=== PATIENT | female | born 1960 | race Caucasian/White ===

== ENCOUNTER → 2017-06-16 | Day surgery (SDC) | payer OTHER ==
[~2017-06-16] MED LIST: AZO STANDARD95 MG PO; BELLADONNA/OPIUM 60 MG SUPP PR ONE; DEXAMETHASONE SOD PHOS INJ 4 MG/ML VIAL ONE; FENTANYL CITRATE/PF 100MCG/2 ML INJ ONE; GENTAMICIN 80MG/NS 100 ML 200 ML IV ONE; IOPAMIDOL 610MG/1ML 300 MG/ML VIAL IV ONE; LIDOCAINE HCL 2% LOCAL INJ 5 ML SDV VIAL INJ ONE; MIDAZOLAM HCL 2 MG/2 ML VIAL ONE; ONDANSETRON HCL INJ 2 MG/ML VIAL ONE; OXYBUTYNIN CHLOR5 MG PO; PROPOFOL IV EMULSION 10 MG/ML 20 ML VIAL ONE; SEVOFLURANE INHAL SOLN 250 ML PEN BTL ONE
[2017-06-16 07:42] LABS: BASOPHILS % 0.5 % (0.0-1.0); EOSINOPHILS # (AUTO) 0.2 (0.0-0.4); EOSINOPHILS % 3.7 % (0.0-6.0); HEMATOCRIT 37.9 % (34.2-44.1); HEMOGLOBIN 12.4 g/dL (12.0-16.0); LYMPHOCYTES # (AUTO) 1.6 (1.0-3.2); LYMPHOCYTES % 27.4 % (18.0-39.1); MEAN CORPUSCULAR HEMOGLOBIN 29.4 pg (28-32); MEAN CORPUSCULAR HGB CONC 32.7 g/dL (31-35); MEAN CORPUSCULAR VOLUME 89.8 fL (81-99); MONOCYTES # (AUTO) 0.5 (0.2-0.8); MONOCYTES % 8.3 % (4.4-11.3); NEUTROPHILS # (AUTO) 3.4 (2.1-6.9); NEUTROPHILS % 59.6 % (38.7-80.0); PLATELET COUNT 246 x10e3/uL (140-360); RED BLOOD COUNT 4.22 x10e6/uL (3.6-5.1); RED CELL DISTRIBUTION WIDTH 13.4 % (11.7-14.4)
--- NOTE | 2017-06-16 07:45 | Diagnostic Imaging Report ---
PROCEDURE:X-RAY ABDOMEN - KUB COMPARISON:None. INDICATIONS:PREOPERATIVE XRAY FOR KIDNEY STONE SURGERY FINDINGS: Proximal loop of left internal ureteral stent projects over the expected region of the ureteropelvic junction. Distal locking loop projects over the expected region of the urinary bladder to the left of midline. No suspicious calcifications project over the renal shadows, left ureteral stent, or the expected right ureteral course. Bowel gas pattern shows no dilated, air-filled loops of bowel. Cholecystectomy clips project over the right upper quadrant. Bowel gas pattern is nonobstructive. CONCLUSION: left internal ureteral stent in position as described. No plain film evidence of urolithiasis. Dictated by: Tu Beaver M.D. on 06/16/2017 at 7:53 Electronically approved by: Tu Beaver M.D. on 06/16/2017 at 7:53
[2017-06-16 08:02] LABS: ANION GAP 14.1 mmol/L (8-16); BLOOD UREA NITROGEN 11 mg/dL (7-26); BUN/CREATININE RATIO 16 (6-25); CALCIUM 9.2 mg/dL (8.4-10.2); CARBON DIOXIDE 24 mmol/L (22-29); CHLORIDE 106 mmol/L (98-107); EST GLOMERULAR FILTRATION RATE > 60 ML/MIN (60-); GLUCOSE 115 mg/dL (74-118); POTASSIUM 4.1 mmol/L (3.5-5.1); SODIUM 140 mmol/L (136-145)
--- NOTE | 2017-08-10 02:25 | Operative Report ---
DATE OF PROCEDURE: June 16, 2017 PREOPERATIVE DIAGNOSES: 1. Horseshoe kidney. 2. Left nephrolithiasis. 3. Left indwelling ureteral stent. POSTOPERATIVE DIAGNOSES: 1. Horseshoe kidney. 2. Left nephrolithiasis. 3. Left indwelling ureteral stent. 4. Grade 2 cystocele. 5. Grade 2 rectocele. 6. Atrophic (senile) vaginitis. OPERATIONS PERFORMED: 1. Cystourethroscopy with complicated removal of left indwelling ureteral stent (separate procedure performed for the diagnosis of the stent done with separate scope). 2. Left semirigid and flexible ureteropyeloscopy (separate procedure performed to evaluate for any residual nephrolithiasis). 3. Interpretation of retrograde ureteropyelography. 4. Supervision of fluoroscopy, no radiologist present. 5. Radiological services for supervision and interpretation of ureteroscopy. 6. Pelvic examination under anesthesia. ANESTHESIA: General. COMPLICATIONS: None. CLINICAL SUMMARY: Pat Orozco is a 56-year-old woman who underwent ureteral stenting for a stone. The patient has known horseshoe kidney. She is brought to the operating room today to evaluate and manage any residual stone. She is aware of the risks of bleeding, infection, injury to adjacent structures, need for additional procedures, and elected to proceed. OPERATIVE PROCEDURE IN DETAIL: Informed consent was verified. Pat Orozco was properly identified, taken to the operating room and placed on the cystoscopy table in supine position. Anesthesia was uneventfully begun. The patient was then carefully and gently repositioned in dorsal lithotomy position with all pressure points well padded. Her genitalia were prepared and draped in usual sterile fashion. The 22.5-Romansh cystoscope sheath with the obturator in place was atraumatically inserted into the patient's urethra and the bladder was drained. Panendoscopy of the urinary bladder revealed a stent emerging from the left ureteral orifice. There were no suspicious lesions. A guidewire was then placed alongside the stent and guided to level of the patient's kidney. The stent was then grasped, completely removed, and discarded. Semirigid ureteroscope was then placed alongside the guidewire into the distal ureter. It did not exhibit any stones and no evidence of strictures and no evidence of suspicious lesions. Flexible ureteroscope was then brought up over the guidewire and guided at the level of the patient's kidney. Careful panendoscopy of the intrarenal collecting system revealed some very fine sand and some calcifications on the mucosa, José Miguel's plaques were identified, but there was no significantly sized stone that could be obstructing or causing the patient problem at this point in time. We did perform careful panendoscopy of the intrarenal collecting system with fluoroscopic guidance 3 times and could not visualize any residual stone. We carefully re-examined the ureter as we exited and it did not exhibit any stones. The patient's bladder was then drained. Cystoscope was withdrawn. Pelvic examination under anesthesia revealed a grade 2 cystocele, grade 2 rectocele with atrophic vaginitis. No abnormal palpable pelvic masses could be appreciated. The patient was then uneventfully reversed from anesthesia and taken to recovery room in stable condition. Explicit postoperative instructions were given. Will follow the patient up in the office. Job#: [id number] cc:JULI CAMACHO MD
== END | disposition home or self-care (01) ==
LOC: OR 05:58
PROVIDERS: ATTEND Urology
DX: N20.0 Calculus of kidney (principal); Q63.1 Lobulated, fused and horseshoe kidney; Z46.6 Encounter for fitting and adjustment of urinary device; N81.10 Cystocele, unspecified; N81.6 Rectocele; N95.2 Postmenopausal atrophic vaginitis; N28.89 Other specified disorders of kidney and ureter; Z01.810 Encounter for preprocedural cardiovascular examination; Z87.891 Personal history of nicotine dependence
CPT/HCPCS: 36415; 52351; 74000; 74420; 80048; 83970; 84550; 85025; 93005; J1100; J1580; J2001; J2250; J2405; Q9967; 74018

== ENCOUNTER 2017-10-07 19:38 | Emergency (ER) | payer OTHER ==
[~2017-10-07] VITALS: Ht 180.3 cm; Wt 117.0 kg
[~2017-10-07 19:38] MED LIST changes: -BELLADONNA/OPIUM 60 MG SUPP PR ONE; -DEXAMETHASONE SOD PHOS INJ 4 MG/ML VIAL ONE; -FENTANYL CITRATE/PF 100MCG/2 ML INJ ONE; -GENTAMICIN 80MG/NS 100 ML 200 ML IV ONE; -IOPAMIDOL 610MG/1ML 300 MG/ML VIAL IV ONE; -LIDOCAINE HCL 2% LOCAL INJ 5 ML SDV VIAL INJ ONE; -MIDAZOLAM HCL 2 MG/2 ML VIAL ONE; -ONDANSETRON HCL INJ 2 MG/ML VIAL ONE; -PROPOFOL IV EMULSION 10 MG/ML 20 ML VIAL ONE; -SEVOFLURANE INHAL SOLN 250 ML PEN BTL ONE
--- OUTSIDE RECORDS SUMMARY | 2017-10-07 19:40 | XMS REPORT ---
Author Author [facility] Address Unknown Phone Unavailable Care Team Providers Care [employer] Mdm Architect Name Role Phone BRADFORD JAY Unavailable Unavailable Problems This patient has no known problems. Allergies, Adverse Reactions, Alerts This patient has no known allergies or adverse reactions. Medications This patient has no known medications. Results Test Description Test Time Test Comments Text Results Atomic Results Result Comments ABDOMEN-1VIEW (KUB) [place] [address] Patient Name: YANY LOW MR #: [id number] : 1960 Age/Sex: 56/F Req # : [id number] Adm Physician: Ordered by: BRADFORD JAY MD Report #: [id number] Location: OR Room/Bed: Procedure: [id number] DX/ABDOMEN-1VIEW (KUB) Exam Date: 06/16/17 Exam Time : 0735 REPORT STATUS: Signed PROCEDURE: X-RAY ABDOMEN - KUB COMPARISON: None. INDICATIONS: PREOPERATIVE XRAY FOR KIDNEY STONE SURGERY FINDINGS: Proximal loop of left internal ureteral stent projects over the expected region of the ureteropelvic junction. Distal locking loop projects over the expected region of the urinary bladder to the left of midline. No suspicious calcifications project over the renal shadows , left ureteral stent, or the expected right ureteral course. Bowel gas pattern shows no dilated, air-filled loops of bowel. Cholecystectomy clips project over the right upper quadrant. Bowel gas pattern is nonobstructive. CONCLUSION: left internal ureteral stent in position as described. No plain film evidence of urolithiasis. Dictated by : Raheel Hwang M.D. on 06/16/2017 at 7:53 Electronically approved by: Raheel Hwang M.D. on 06/16/2017 at 7:53 Dictated By: RAHEEL HWANG MD [id number] Transcribed By : MILLIE on 06/16/17 0753 COPY TO: BRADFORD JAY MD
[2017-10-07] MEDS ORDERED: SODIUM CHLORIDE 0.9% 1000ML 1,000 ML IV STA (19:53)
[2017-10-07 20:12] LABS: BASOPHILS % 0.4 % (0.0-1.0); EOSINOPHILS # (AUTO) 0.2 (0.0-0.4); EOSINOPHILS % 1.8 % (0.0-6.0); HEMATOCRIT 37.6 % (34.2-44.1); HEMOGLOBIN 12.3 g/dL (12.0-16.0); LYMPHOCYTES # (AUTO) 1.8 (1.0-3.2); LYMPHOCYTES % 21.8 % (18.0-39.1); MEAN CORPUSCULAR HEMOGLOBIN 28.8 pg (28-32); MEAN CORPUSCULAR HGB CONC 32.7 g/dL (31-35); MEAN CORPUSCULAR VOLUME 88.1 fL (81-99); MONOCYTES # (AUTO) 0.6 (0.2-0.8); MONOCYTES % 6.7 % (4.4-11.3); NEUTROPHILS # (AUTO) 5.7 (2.1-6.9); NEUTROPHILS % 68.9 % (38.7-80.0); PLATELET COUNT 293 x10e3/uL (140-360); RED BLOOD COUNT 4.27 x10e6/uL (3.6-5.1); RED CELL DISTRIBUTION WIDTH 13.2 % (11.7-14.4)
[2017-10-07 20:17] LABS: CLARITY,URINE HAZY (CLEAR); COLOR,URINE ORANGE (YELLOW)
[2017-10-07 20:18] LABS: KETONES,URINE TRACE (NEGATIVE); LEUKOCYTE ESTERASE ,URINE NEGATIVE (NEGATIVE); NITRITE,URINE POSITIVE (NEGATIVE); PROTEIN,URINE DIPSTICK 2+ (NEGATIVE)
[2017-10-07 20:19] LABS: BILIRUBIN,URINE NEGATIVE (NEGATIVE); URINE UROBILINOGEN 0.2 mg/dL (0.2 - 1)
[2017-10-07 20:32] LABS: ALANINE AMINOTRANSFERASE 38 IU/L (0-55); ALBUMIN 3.6 g/dL (3.5-5.0); ALBUMIN/GLOBULIN RATIO 1.1 (0.8-2.0); ALKALINE PHOSPHATASE 79 IU/L (40-150); ANION GAP 12.6 mmol/L (8-16); BLOOD UREA NITROGEN 13 mg/dL (7-26); BUN/CREATININE RATIO 18 (6-25); CALCIUM 9.4 mg/dL (8.4-10.2); CARBON DIOXIDE 25 mmol/L (22-29); CHLORIDE 103 mmol/L (98-107); CREATININE, SERUM 0.73 mg/dL (0.57-1.11); EST GLOMERULAR FILTRATION RATE > 60 ML/MIN (60-); GLUCOSE 146 mg/dL (74-118); MAGNESIUM 1.8 MG/DL (1.3-2.1); POTASSIUM 3.6 mmol/L (3.5-5.1); SODIUM 137 mmol/L (136-145)
[2017-10-07 20:38] LABS: BACTERIA,URINE FEW /HPF; EPITHELIAL CELLS,URINE FEW /LPF; RBC,URINE >50 /HPF (0-5)
[2017-10-07] MEDS ORDERED: CEFTRIAXONE SOD 1 GM VIAL IV SCH (21:00)
[2017-10-07] MEDS ORDERED: MORPHINE SULFATE 4 MG/ML SYR IV STA (21:01)
[2017-10-07] MEDS ORDERED: MORPHINE SULFATE 2 MG/ML SYR ONE (21:04)
[2017-10-07] MEDS ORDERED: ONDANSETRON HCL 4 MG ORAL DISINTEGRATING TAB PO PRN (21:15)
--- NOTE | 2017-10-07 21:34 | Diagnostic Imaging Report ---
EXAM: CT ABDOMEN/PELVIS WO DATE: 10/07/2017 7:53 PM INDICATION: Stent evaluation, abdominal pain on the right COMPARISON: None TECHNIQUE: The abdomen and pelvis were scanned using a multidetector helical scanner. Coronal and sagittal reformations were obtained. Routine protocol performed. IV Contrast: 0 ml Isovue 300/370 FINDINGS: LOWER THORAX: No consolidations LIVER/BILIARY: Diffuse hepatic steatosis. GALLBLADDER: Cholecystectomy. SPLEEN: Unremarkable PANCREAS: Unremarkable ADRENALS: No nodules KIDNEYS: Horseshoe kidney. There is a 6.5 cm left renal cyst/benign appearing cystic lesion. A right double-J ureteral stent is in place without stones or hydronephrosis; focal mild inferior caliectasis. There is some right periureteral stranding. GI TRACT: No wall thickening or evidence of obstruction. Normal appendix. VESSELS: Unremarkable PERITONEUM/RETROPERITONEUM: No free air or fluid LYMPH NODES: No lymphadenopathy REPRODUCTIVE ORGANS/BLADDER: Status post hysterectomy. 2.7 cm right ovarian cystic structure and 1.6 cm left ovarian cystic structure. SOFT TISSUES: Unremarkable BONES: No suspicious bone lesions. IMPRESSION: 1. Horseshoe kidney. Right double-J ureteral stent without hydronephrosis. Right periureteral stranding which may be inflammatory or infectious; correlate with urinalysis. 2. Bilateral ovarian cystic lesions (largest 2.7 cm). Recommend nonemergent follow-up pelvic ultrasound. Signed by: Dr Dorota Pierre MD on 10/07/2017 9:31 PM
[2017-10-07] MEDS ORDERED: KETOROLAC TROMETHAMINE 30 MG/ML VIAL IV STA (22:48)
[2017-10-07] MEDS ORDERED: SODIUM CHLORIDE 0.9% 250ML 250 ML ONE (22:49)
[2017-10-07] MEDS ORDERED: SODIUM CHLORIDE 0.9% 500ML 500 ML IV ONE (23:00)
[2017-10-07 23:37] VITALS: BP 134/76
== END 2017-10-07 23:47 | disposition home or self-care (01) ==
LOC: ER 19:38
DX: R10.31 Right lower quadrant pain (principal); N30.91 Cystitis, unspecified with hematuria; N39.0 Urinary tract infection, site not specified
CPT/HCPCS: 36415; 74176; 80053; 81001; 83605; 83735; 85025; 87040; 87086; 99284; J0696; J1885; J2270; J7030; J7050

== ENCOUNTER → 2017-12-06 | Outpatient (CLI) | payer OTHER ==
[~2017-12-06] MED LIST changes: +FUROSEMIDE INJ 10 MG/ML 4 ML VIAL ONE
--- NOTE | 2017-12-06 22:41 | Diagnostic Imaging Report ---
Renal Scan with Lasix Washout Clinical information: 57 F with known horseshoe kidney; complains of intermittent left flank pain Technique: Following intravenous administration of 11 mCi of Tc-99m MAG3, dynamic images of the kidneys in the posterior projection were obtained through 40 minutes. Lasix 40 mg was administered intravenously at 12 minutes post injection of the tracer. Report: The kidney have a horseshoe configuration with distinct right and left collecting systems. Left kidney: Perfusion of the left kidney moiety is prompt. The kidney has a non-reniform shape with irregular contours. Extraction of tracer from the blood pool is decreased. Clearance of tracer from the renal parenchyma is prompt. The pelvicalyceal system is not dilated. Some increase in pooling of tracer within the pelvicalyceal system is seen. Some drainage of tracer from the pelvicalyceal system is seen prior to administration of Lasix. Washout of tracer from the pelvicalyceal system following administration of Lasix is rapid with a T-1/2 of 6 minutes (normal less than 15 minutes). No significant stasis of tracer is seen within the left ureter. Right kidney: Perfusion to the right kidney moiety is prompt. The right kidney has a non-reniform shape with irregular contours. Extraction of tracer by the renal parenchyma is decreased. Clearance of tracer from the renal parenchyma is prompt. The pelvicalyceal system is not dilated. Some increase in pooling of tracer within the pelvicalyceal system is seen. Some drainage of tracer from the pelvicalyceal system is seen prior to administration of Lasix. Washout of tracer from the pelvicalyceal system following administration of Lasix is rapid with a T-1/2 of 4 minutes (normal less than 15 minutes). No significant stasis of tracer is seen within the right ureter. Differential renal function: The left kidney moiety contributes 53% of total renal function and the right kidney moiety contributes 47% (normal 43-57%). Impression: 1. The function of the left kidney is generally normal. No hydronephrosis is present. No physiologically significant obstruction of the renal collecting system is present. 2. The function of the right kidney is generally normal. No hydronephrosis is present. No physiologically significant obstruction of the renal collecting system is present. 3. The differential renal function is preserved. Signed by: Dr. Marj Vang M.D. on 12/06/2017 10:37 PM
== END ==
LOC: NM 09:13
PROVIDERS: ATTEND Urology
DX: N13.30 Unspecified hydronephrosis (principal)
CPT/HCPCS: 78708; A9562; J1940

== ENCOUNTER → 2018-11-01 | Outpatient (CLI) | payer OTHER ==
[~2018-11-01] MED LIST changes: -FUROSEMIDE INJ 10 MG/ML 4 ML VIAL ONE
--- NOTE | 2018-11-01 16:15 | Diagnostic Imaging Report ---
Exam: KUB - 2 views Clinical History: Renal calculus. Comparison: KUB 06/16/[address] abdomen/pelvis without contrast 10/07/2017. Findings: Interval removal of right-sided internal ureteral stent. No evidence of calcification overlying the expected location of the horseshoe kidney or the ureters. Nonobstructive bowel gas pattern. No acute osseous abnormality. Status post cholecystectomy. Impression: No radiographic evidence of nephrolithiasis. Signed by: Dr. Suleman Smiley MD on 11/01/2018 4:11 PM
== END ==
LOC: RAD 15:25
PROVIDERS: ATTEND Urology
DX: N20.0 Calculus of kidney (principal)
CPT/HCPCS: 74018

== ENCOUNTER → 2020-08-27 | Outpatient (CLI) | payer BC | LOC: CT 15:31 | PROVIDERS: ATTEND Urology | DX: N23 Unspecified renal colic (principal); Z87.442 Personal history of urinary calculi | CPT/HCPCS: 74176 ==

== ENCOUNTER 2021-05-03 13:09 | Emergency (ER) | payer BC, OTHER ==
[~2021-05-03] VITALS: Ht 180.3 cm; Wt 117.0 kg
[2021-05-03] MEDS ORDERED: KETOROLAC TROMETHAMINE 30 MG/ML VIAL IV STA (13:44)
[2021-05-03] MEDS ORDERED: ORPHENADRINE CITRATE 30 MG/ML VIAL IM STA (13:44)
[2021-05-03] MEDS ORDERED: DEXAMETHASONE SOD PHOS 10 MG/1 ML VIAL IV ONE (13:45)
[2021-05-03] MEDS ORDERED: FENTANYL CITRATE/PF 100MCG/2 ML INJ IV ONE ×2 (13:45→16:00)
[2021-05-03] MEDS ORDERED: PREDNISONE50 MG PO (15:21)
[2021-05-03] MEDS ORDERED: CYCLOBENZAPRINE5 MG PO (15:24)
[2021-05-03] MEDS ORDERED: IBUPROFEN800 MG PO (15:24)
[2021-05-03 16:20] VITALS: BP 127/72
== END 2021-05-03 16:17 | disposition home or self-care (01) ==
LOC: ER 13:34
DX: M54.50 Low back pain, unspecified (principal); W01.0XXA Fall on same level from slipping, tripping and stumbling without subsequent striking against object, initial encounter; Y93.01 Activity, walking, marching and hiking; Y99.0 Civilian activity done for income or pay; I10 Essential (primary) hypertension; Q63.1 Lobulated, fused and horseshoe kidney; Z87.442 Personal history of urinary calculi; Z86.39 Personal history of other endocrine, nutritional and metabolic disease
CPT/HCPCS: 72110; 73502; 73562; 99284; J1100; J1885; J2360; J3010

== ENCOUNTER 2021-05-07 13:20 | Emergency (ER) | payer BC, OTHER ==
[~2021-05-07] VITALS: Ht 180.3 cm; Wt 117.0 kg
[~2021-05-07 13:20] MED LIST changes: +CYCLOBENZAPRINE5 MG PO; +IBUPROFEN800 MG PO; +PREDNISONE50 MG PO
[2021-05-07] MEDS ORDERED: ONDANSETRON HCL INJ 2MG/ML 2ML 2 MG/ML VIAL IV STA (13:37)
[2021-05-07] MEDS ORDERED: Morphine 4mg Syringe 4 MG/ML INJ IV STA (13:37)
[2021-05-07] MEDS ORDERED: SODIUM CHLORIDE 0.9% 1000ML 1,000 ML IV STA (13:37)
[2021-05-07 13:52] LABS: BASOPHILS % 0.5 % (0.0-1.0); EOSINOPHILS # (AUTO) 0.2 (0.0-0.4); EOSINOPHILS % 2.4 % (0.0-6.0); HEMATOCRIT 40.3 % (34.2-44.1); HEMOGLOBIN 12.9 g/dL (12.0-16.0); LYMPHOCYTES # (AUTO) 1.4 (1.0-3.2); LYMPHOCYTES % 17.1 % (18.0-39.1); MEAN CORPUSCULAR HEMOGLOBIN 29.2 pg (28-32); MEAN CORPUSCULAR VOLUME 91.2 fL (81-99); MONOCYTES # (AUTO) 0.5 (0.2-0.8); NEUTROPHILS # (AUTO) 5.9 (2.1-6.9); NEUTROPHILS % 73.4 % (38.7-80.0); PLATELET COUNT 247 x10e3/uL (140-360); RED BLOOD COUNT 4.42 x10e6/uL (3.6-5.1); RED CELL DISTRIBUTION WIDTH 13.3 % (11.7-14.4)
[2021-05-07 14:13] LABS: ALBUMIN 3.9 g/dL (3.5-5.0); ALBUMIN/GLOBULIN RATIO 1.3 (0.8-2.0); ANION GAP 14.4 mmol/L (8-16); CALCIUM 8.8 mg/dL (8.4-10.2); CREATININE, SERUM 0.64 mg/dL (0.57-1.11); POTASSIUM 3.4 mmol/L (3.5-5.1)
[2021-05-07] MEDS ORDERED: IOPAMIDOL 370 MG/ML 200 ML INFUS..BTL INJ ONE (14:29)
[2021-05-07] MEDS ORDERED: SODIUM CHLORIDE 0.9% 50ML 50 ML ONE (14:29)
[2021-05-07] MEDS ORDERED: POTASSIUM CHLORIDE 10MEQ EA PO ONE (15:45)
[2021-05-07] MEDS ORDERED: KETOROLAC TROMETHAMINE 30 MG/ML VIAL IV STA (15:53)
[2021-05-07 15:55] LABS: CLARITY,URINE CLOUDY (CLEAR); COLOR,URINE YELLOW (YELLOW); KETONES,URINE NEGATIVE (NEGATIVE); LEUKOCYTE ESTERASE ,URINE NEGATIVE (NEGATIVE); NITRITE,URINE NEGATIVE (NEGATIVE); PROTEIN,URINE DIPSTICK NEGATIVE (NEGATIVE); URINE UROBILINOGEN 0.2 mg/dL (0.2 - 1)
[2021-05-07 16:05] LABS: BACTERIA,URINE RARE /HPF; EPITHELIAL CELLS,URINE FEW /LPF
[2021-05-07] MEDS ORDERED: DICYCLOMINE HCL 20 MG/2 ML VIAL IM ONE (16:15)
[2021-05-07 16:33] VITALS: BP 143/66
== END 2021-05-07 16:40 | disposition home or self-care (01) ==
LOC: ER 13:45
DX: R10.30 Lower abdominal pain, unspecified (principal); N94.9 Unspecified condition associated with female genital organs and menstrual cycle; K76.0 Fatty (change of) liver, not elsewhere classified
CPT/HCPCS: 36415; 74177; 80053; 81001; 83690; 85025; 99284; J0500; J2270; J2405; J7030; Q9967

== ENCOUNTER 2024-05-24 13:30 | Day surgery (SDC) | payer BC ==
[2024-05-21 11:09] LABS: BASOPHILS % 0.7 % (0.0-1.0); EOSINOPHILS # (AUTO) 0.2 (0.0-0.4); EOSINOPHILS % 3.1 % (0.0-6.0); HEMATOCRIT 36.9 % (34.2-44.1); LYMPHOCYTES # (AUTO) 1.2 (1.0-3.2); LYMPHOCYTES % 18.7 % (18.0-39.1); MEAN CORPUSCULAR HEMOGLOBIN 29.8 pg (28-32); MEAN CORPUSCULAR HGB CONC 32.5 g/dL (31-35); MEAN CORPUSCULAR VOLUME 91.6 fL (81-99); MONOCYTES # (AUTO) 0.5 (0.2-0.8); MONOCYTES % 7.6 % (4.4-11.3); NEUTROPHILS # (AUTO) 4.3 (2.1-6.9); NEUTROPHILS % 69.6 % (38.7-80.0); PLATELET COUNT 201 x10e3/uL (140-360); RED BLOOD COUNT 4.03 x10e6/uL (3.6-5.1); RED CELL DISTRIBUTION WIDTH 13.2 % (11.7-14.4); WHITE BLOOD COUNT 6.15 x10e3/uL (4.8-10.8)
[2024-05-21 11:18] LABS: INR 0.87; PROTHROMBIN TIME 12.4 seconds (11.9-14.5)
[2024-05-21 11:27] LABS: ALBUMIN 3.6 g/dL (3.5-5.0); ALBUMIN/GLOBULIN RATIO 1.3 (0.8-2.0); ANION GAP 10.8 mmol/L (8-16); BILIRUBIN,TOTAL 0.8 mg/dL (0.2-1.2); CALCIUM 8.7 mg/dL (8.4-10.2); CREATININE, SERUM 0.64 mg/dL (0.57-1.11); POTASSIUM 3.8 mmol/L (3.5-5.1); TOTAL PROTEIN 6.3 g/dL (6.5-8.1)
[~2024-05-24] VITALS: Ht 180.3 cm; Wt 122.5 kg
[2024-05-24] VITALS (12 sets, daily range): BP systolic 133–181; BP diastolic 64–90; PULSE 59–74; RESP 15–22; TEMP 97.1–97.7; O2SAT 96–100
[2024-05-24] MEDS ORDERED: HEPARIN SOD (PORCINE) 1000 UNIT/ML 30ML ONE (15:27)
[2024-05-24] MEDS ORDERED: LIDOCAINE HCL 2% LOCAL 20 ML VIAL ONE (15:27)
[2024-05-24] MEDS ORDERED: VERAPAMIL HCL 2.5 MG/ML 2 ML VIAL ONE (15:27)
[2024-05-24] MEDS ORDERED: IOPAMIDOL 370 MG/ML 100 ML INFUS..BTL INJ ONE (15:28)
[2024-05-24] MEDS ORDERED: SODIUM CHLORIDE 0.9% 1000ML 1,000 ML ONE (15:28)
[2024-05-24] MEDS ORDERED: HEPARIN SOD/SOD CHLORIDE 2,000 ML ONE (15:28)
[2024-05-24] MEDS ORDERED: NITROGLYCERIN/D5W 200 MCG/ML 250 ML ONE (15:29)
[2024-05-24] MEDS ORDERED: MIDAZOLAM HCL 2 MG/2 ML VIAL ONE (15:39)
[2024-05-24] MEDS ORDERED: FENTANYL CITRATE/PF 100MCG/2 ML INJ ONE (15:39)
== END 2024-05-24 18:00 | disposition home or self-care (01) ==
LOC: CATH LAB 13:30
PROVIDERS: ATTEND Internal Medicine Cardiovascular Disease
DX: I25.10 Atherosclerotic heart disease of native coronary artery without angina pectoris (principal); I10 Essential (primary) hypertension; Z88.6 Allergy status to analgesic agent; Z88.8 Allergy status to other drugs, medicaments and biological substances; Z01.812 Encounter for preprocedural laboratory examination; Z79.1 Long term (current) use of non-steroidal anti-inflammatories (NSAID); Z87.891 Personal history of nicotine dependence
CPT/HCPCS: 36415 ×2; 76937; 80053; 82948; 85025; 85610; 93458; C1769; C1887; J1644; J2003; J2250; J3010; J7030; Q9967; 99152